=== PATIENT | male | born 1965 | race Caucasian/White ===

== ENCOUNTER 2017-02-25 13:27 | Day surgery (SDC) | payer OTHER ==
[~2017-02-25] VITALS: Ht 185.4 cm; Wt 90.5 kg
[2017-02-25] MEDS ORDERED: LACTATED RINGERS 1,000 ML IV SCH (13:54)
[2017-02-25 13:55] VITALS: BP 136/90
[2017-02-25] MEDS ORDERED: LIDOCAINE 1%, 2ML SQ PRN (14:00)
[2017-02-25] MEDS ORDERED: PLEASE ENTER HEIGHT AND WEIGHT MC SCH (14:00)
[2017-02-25] MEDS ORDERED: IBUP-1222 PO (14:11)
[2017-02-25] MEDS ORDERED: FLUT16SP NAS (14:11)
[2017-02-25] MEDS ORDERED: LIDOCAINE/PF 1%, 30ML ONE (14:16)
[2017-02-25] MEDS ORDERED: OXYMETAZOLINE NASAL SPRAY 0.05%, 15ML ONE (14:17)
[2017-02-25] MEDS ORDERED: EPINEPHRINE 1 MG/ML, 1ML ONE (14:17)
[2017-02-25] MEDS ORDERED: BACITRACIN OINT 500U/GM, 15 GM ONE (14:17)
[2017-02-25] MEDS ORDERED: MEPERIDINE/PF 25MG/0.5ML IVPush PRN (14:30)
[2017-02-25] MEDS ORDERED: LABETALOL 5MG/ML, 20ML IV PRN (14:30)
[2017-02-25] MEDS ORDERED: ONDANSETRON 2MG/ML, 2ML IVPush PRN (14:30)
[2017-02-25] MEDS ORDERED: PROMETHAZINE 25 MG/ML, 1ML IV PRN (14:30)
[2017-02-25] MEDS ORDERED: hydrALAzine 20 MG/ML, 1ML IV PRN (14:30)
[2017-02-25] MEDS ORDERED: OXYcodone 5 MG/5 ML ORAL.SOL UDC PO PRN (14:30)
[2017-02-25] MEDS ORDERED: ACETAMINOPHEN 325 MG TABLET PO PRN (14:30)
[2017-02-25] MEDS ORDERED: FENTANYL PF 250 MCG/5ML ONE (14:36)
[2017-02-25] MEDS ORDERED: CEFAZOLIN 1,000 MG ONE (14:36)
[2017-02-25] MEDS ORDERED: NEOSTIGMINE 1 MG/ML, 10ML ONE (14:36)
[2017-02-25] MEDS ORDERED: GLYCOPYRROLATE 0.2MG/1ML, 5ML ONE (14:36)
[2017-02-25] MEDS ORDERED: MIDAZOLAM 1 MG/ML, 2ML ONE (14:36)
[2017-02-25] MEDS ORDERED: PROPOFOL 10 MG/ML, 20ML ONE (14:36)
[2017-02-25] MEDS ORDERED: ROCURONIUM 10 MG/ML,10ML ONE (14:36)
[2017-02-25] MEDS ORDERED: LIDOCAINE 1%-EPI 1:100K, 30ML INFIL ONE (14:58)
[2017-02-25] MEDS: FENTANYL PF 100 MCG/2ML IV PRN ×4 (15:44→16:27)
[2017-02-25] MEDS: HYDROmorphone 1 MG/ML, 1ML IV PRN ×7 (15:53→17:10)
[2017-02-25] MEDS ORDERED: morphine SULFATE 10 MG/ML, 1ML IVPush PRN (17:30)
== END 2017-02-25 18:40 ==
LOC: OR 13:27
PROVIDERS: ATTEND Otolaryngology
DX: J34.2 Deviated nasal septum (principal); S02.2XXA Fracture of nasal bones, initial encounter for closed fracture; I25.2 Old myocardial infarction; X58.XXXA Exposure to other specified factors, initial encounter; Y93.89 Activity, other specified; Y92.89 Other specified places as the place of occurrence of the external cause; Y99.8 Other external cause status
CPT/HCPCS: 21320; 30520; J0171; J0690; J1170; J2250; J2270; J2704; J2710; J3010; J3490; J7120